=== PATIENT | male | born 1985 ===

== ENCOUNTER 2018-02-07 21:55 | Emergency (ER) | payer SELFPAY ==
[2018-02-07 23:37] LABS: ABS Basophils 0 10^3/ul (0-0.2); ABS Eosinophils 0.1 10^3/ul (0-0.6); ABS Monocytes 0.8 10^3/ul (0-0.8); ABS Neutrophils 4.4 10^3/ul (1.5-7.7); ABS Nucleated RBC 0 10^3/ul; Eosinophil % 1.1 %; Hematocrit 42 % (42-52); Hemoglobin 14.4 g/dl (14.0-18.0); Lymphocyte % 36.7 %; Mean Corpuscular HGB Conc 34 g/dl (31-36); Mean Corpuscular Hemoglobin 30 pg (27-31); Mean Corpuscular Volume 89 fL (80-94); Nucleated Red Blood Cells % 0.1; Platelet Count 255 10^3/ul (150-450); Red Blood Count 4.75 10^6/ul (4.00-5.40); Red Cell Distribution Width 14 % (10.5-15); White Blood Count 8.3 10^3/ul (3.5-10.8)
[2018-02-07] MEDS ORDERED: NS 0.9% 1000 ML* 1,000 ML IV ONE (23:53)
[2018-02-07] MEDS ORDERED: Ketorolac INJ* 30 MG/ML 1 ML VIAL IV PUSH ONE (23:53)
[2018-02-07 23:55] LABS: Urine Appearance Clear; Urine Blood Negative (Negative); Urine Color Yellow; Urine Ketones Negative (Negative); Urine Protein Negative (Negative); Urine Specific Gravity 1.012 (1.010-1.030); Urine Urobilinogen Negative (Negative)
--- NOTE | 2018-02-07 23:56 | ED ---
GI/ HPI - HPI Summary HPI Summary: 32 year male presents with abdominal pain for the past couple hours. He denies any nausea or vomiting. no fever. He has had a normal appetite. States the pain is greatest epigastric and radiates to right lower quadrant. Never had this pain before. No previous surgeries. Denies any urinary symptoms. No diarrhea or constipation. no medical conditions. had food with pepper today. - History of Current Complaint Chief Complaint: EDAbdPain Time Seen by Provider: 02/07/18 23:23 Stated Complaint: ABD PAIN Pain Intensity: 10 - Allergy/Home Medications Allergies/Adverse Reactions: Allergies Allergy/AdvReac Type Severity Reaction Status Date / Time No Known Allergies Allergy Verified 02/07/18 22:01 Home Medications: Home Medications NK [No Home Medications Reported] 02/08/18 [History Confirmed 02/08/18] PMH/Surg Hx/FS Hx/Imm Hx Endocrine/Hematology History: Denies: Hx Anticoagulant Therapy Respiratory History: Denies: Hx Asthma Infectious Disease History: No Infectious Disease History: Denies: Traveled Outside the [place] in Last 30 Days - Family History Known Family History: Positive: Non-Contributory - Social History Substance Use Type: Reports: None Review of Systems Negative: Fever Negative: Chest Pain Negative: Shortness Of Breath Positive: Abdominal Pain. Negative: Vomiting, Diarrhea, Nausea All Other Systems Reviewed And Are Negative: Yes Physical Exam Triage Information Reviewed: Yes Vital Signs On Initial Exam: Initial Vitals Temp Pulse Resp BP Pulse Ox 99.4 F 80 16 154/90 97 02/07/18 21:57 02/07/18 21:57 02/07/18 21:57 02/07/18 21:57 02/07/18 21:57 Vital Signs Reviewed: Yes Appearance: Positive: Well-Appearing Skin: Positive: Warm, Dry Head/Face: Positive: Normal Head/Face Inspection Eyes: Positive: Normal, EOMI, HEMAL, Conjunctiva Clear ENT: Positive: Normal ENT inspection, Pharynx normal, TMs normal Respiratory/Lung Sounds: Positive: Clear to Auscultation, Breath Sounds Present Cardiovascular: Positive: Normal, RRR Abdomen Description: Positive: Soft, Other: - tenderness epigastric and RLQ Bowel Sounds: Positive: Present Musculoskeletal: Positive: Normal Neurological: Positive: Normal Psychiatric: Positive: Normal Diagnostics - Vital Signs Vital Signs Temp Pulse Resp BP Pulse Ox 02/07/18 21:57 99.4 F 80 16 154/90 97 - Laboratory Lab Results: Lab Results 02/07/18 Range/Units 23:30 WBC 8.3 (3.5-10.8) 10^3/ul RBC 4.75 (4.00-5.40) 10^6/ul Hgb 14.4 (14.0-18.0) g/dl Hct 42 (42-52) % MCV 89 (80-94) fL MCH 30 (27-31) pg MCHC 34 (31-36) g/dl RDW 14 (10.5-15) % Plt Count 255 (150-450) 10^3/ul MPV 8.0 (7.4-10.4) fL Neut % (Auto) 52.7 % Lymph % (Auto) 36.7 % Mcdonald % (Auto) 9.1 % Eos % (Auto) 1.1 % Baso % (Auto) 0.4 % Absolute Neuts (auto) 4.4 (1.5-7.7) 10^3/ul Absolute Lymphs (auto) 3.0 (1.0-4.8) 10^3/ul Absolute Monos (auto) 0.8 (0-0.8) 10^3/ul Absolute Eos (auto) 0.1 (0-0.6) 10^3/ul Absolute Basos (auto) 0 (0-0.2) 10^3/ul Absolute Nucleated RBC 0 10^3/ul Nucleated RBC % 0.1 Result Diagrams: 02/07/18 23:30 02/07/18 23:30 Lab Statement: Any lab studies that have been ordered have been reviewed, and results considered in the medical decision making process. GIGU Course/Dx - Course Course Of Treatment: 32 year male presents with abdominal pain for the past couple hours. He denies any nausea or vomiting. no fever. He has had a normal appetite. States the pain is greatest epigastric and radiates to right lower quadrant. Never had this pain before. No previous surgeries. Denies any urinary symptoms. No diarrhea or constipation. On exam tenderness epigastrically right lower quadrant. Patient is very vague about the symptoms. labs within normal limits. Due to pain distribution will get a CT. patient signed out to dr woodson pending CT for dispo. - Diagnoses Differential Diagnoses - Male: Appendicitis, Gastroenteritis (Viral), Urinary Tract Infection Provider Diagnoses: Abdominal pain Discharge - Sign-Out/Discharge Documenting (check all that apply): Sign-Out Patient Signing out patient TO: Julieta Woodson - Discharge Plan Referrals: No Primary Care Phys,NOPCP [Primary Care Provider] -
[2018-02-08] MEDS ORDERED: Iohexol 300* (CONTRAST) 10 ML SDV IV ONE (02:59)
--- NOTE | 2018-02-08 03:03 | ED ---
Progress - Progress Note Progress Note: Patient was signed out from KAYLI Pablo to Dr. Woodson upon provider shift change pending CT results. - Results/Orders Results/Orders: CT Abd/Pelvis reveals, per radiologist, fatty infiltration of the liver. Dr. Woodson has reviewed this report. Course/Dx - Course Course Of Treatment: Patient was signed out from Erendira MILAN to Dr. Woodson upon provider shift change pending CT results. CT Abd/Pelvis reveals, per radiologist, fatty infiltration of the liver. Dr. Woodson has reviewed this report. Patient will be discharged home with follow up from PCP. Patient is agreeable with this plan. - Diagnoses Provider Diagnoses: Abdominal pain Discharge - Sign-Out/Discharge Documenting (check all that apply): Patient Departure - Discharge Plan Condition: Stable Disposition: HOME Patient Education Materials: Abdominal Pain (ED) [facility]errals: [facility] [address] [Outside] - 2 Days Additional Instructions: Follow up with primary care physician in 1-2 days. Return to the emergency department with any new or worsening symptoms. - Attestation Statements Document Initiated by Scribe: Yes Documenting Scribe: Erendira Ambrose Provider For Whom Scribe is Documenting (Include Credential): Julieta Woodson MD Scribe Attestation: IErendira, scribed for Julieta Woodson MD on 02/08/18 at 0412. Status of Scribe Document: Ready
[2018-02-08] MEDS ORDERED: Ketorolac INJ* 30 MG/ML 1 ML VIAL IV PUSH ONE (04:19)
[2018-02-08] MEDS ORDERED: Ketorolac INJ* 15 MG/ML 1 ML VIAL ONE (04:21)
[2018-02-08] MEDS ORDERED: Ketorolac INJ* 15 MG/ML 1 ML VIAL IV PUSH ONE (04:22)
[2018-02-08 04:33] VITALS: BP 128/95
== END 2018-02-08 04:34 | disposition home or self-care (01) ==
LOC: ED 21:55
DX: R10.13 Epigastric pain (principal); R10.31 Right lower quadrant pain
CPT/HCPCS: 36415; 74177; 80053; 81003; 83690; 85025; 86140; 96361; 96374; 96376; 99282; J1885; Q9967

== ENCOUNTER 2018-02-14 15:51 | Emergency (ER) | payer SELFPAY ==
[2018-02-14] MEDS ORDERED: Pantoprazole TAB (NF) 40 MG TAB PO ONE (16:07)
--- NOTE | 2018-02-14 16:11 | ED ---
Abdominal Pain/Male - HPI Summary HPI Summary: This pt is a 32 y/o male presenting to [facility] c/o abd pain for the past 2 days with associated symptoms of nausea and vomiting. Pt reports he has had abd pain worsening after eating. He notes he has abd bloating after eating. Denies chest pain, SOB, fever, chills, diarrhea, urinary symptoms. Pt was seen for the same 7 days ago in the ED and had a normal CT scan. He was discharged home without any medications. No PMHx. Denies any prior abd surgeries. Denies tobacco and alcohol use. - History of Current Complaint Chief Complaint: EDAbdPain Stated Complaint: VOMITING, ABD PAIN Time Seen by Provider: 02/14/18 16:00 Hx Obtained From: Patient Onset/Duration: Lasting Days - 2, Still Present Timing: Lasting Days - 2 Severity Currently: Moderate Pain Intensity: 10 Pain Scale Used: 0-10 Numeric Location: Diffuse Radiates: No Aggravating Factor(s): Food Alleviating Factor(s): Nothing Associated Signs And Symptoms: Positive: Vomiting. Negative: Fever, Chest Pain , Urinary Symptoms, Diarrhea - Allergies/Home Medications Allergies/Adverse Reactions: Allergies Allergy/AdvReac Type Severity Reaction Status Date / Time No Known Allergies Allergy Verified 02/14/18 16:56 PMH/Surg Hx/FS Hx/Imm Hx Endocrine/Hematology History: Denies: Hx Anticoagulant Therapy, Hx Diabetes Cardiovascular History: Denies: Hx Hypertension Respiratory History: Denies: Hx Asthma History: Denies: Hx Renal Disease Infectious Disease History: No Infectious Disease History: Denies: Traveled Outside the [place] in Last 30 Days - Family History Known Family History: Positive: Non-Contributory - Social History Alcohol Use: Occasionally Substance Use Type: Reports: None Smoking Status (MU): Never Smoked Tobacco Review of Systems Negative: Fever, Chills Negative: Chest Pain Negative: Shortness Of Breath Gastrointestinal: Other - POSITIVE: abd bloating Positive: Abdominal Pain, Vomiting, Nausea. Negative: Diarrhea Positive: no symptoms reported, see HPI Neurological: Negative All Other Systems Reviewed And Are Negative: Yes Physical Exam - Summary Physical Exam Summary: Appearance: Well appearing, no pain distress Skin: warm, dry, reflects adequate perfusion Head/face: normal Eyes: EOMI, HEMAL ENT: normal Neck: supple, nontender Respiratory: CTA, breath sounds present Cardiovascular: RRR, pulses symmetrical Abdomen: nontender, soft Musculoskeletal: normal, strength/ROM intact Neuro: normal, sensory motor intact, A&Ox3 Triage Information Reviewed: Yes Vital Signs On Initial Exam: Initial Vitals Temp Pulse Resp BP Pulse Ox 97.2 F 78 18 137/88 98 02/14/18 15:54 02/14/18 15:54 02/14/18 15:54 02/14/18 15:54 02/14/18 15:54 Vital Signs Reviewed: Yes Diagnostics - Vital Signs Vital Signs Temp Pulse Resp BP Pulse Ox 02/14/18 15:54 97.2 F 78 18 137/88 98 - Laboratory Result Diagrams: 02/14/18 16:14 02/14/18 16:14 Lab Statement: Any lab studies that have been ordered have been reviewed, and results considered in the medical decision making process. - Additional Comments Diagnostic Additional Comments: Abdomen/Pelvis CT (from 02/08/18), as read by radiologist IMPRESSION: 1. Fatty infiltration of the liver. 2. Otherwise negative CT abdomen/pelvis. No renal or ureteral calculi are evident and there is no evidence of obstructive uropathy. Dr. Reza has reviewed this report. Re-Evaluation - Re-Evaluation First Eval Re-Evaluation Time: 17:25 Comment: I reviewed the lab results with the pt. He will be discharged home. Abdominal Pain Fem Course/Dx - Course Assessment/Plan: Pt is a 32 y/o male who presents with abd pain for the past 2 days with associated symptoms of nausea and vomiting. He notes he has abd bloating after eating. Pt was seen for the same 7 days ago in the ED and had a normal CT scan. Blood work and urinalysis obtained. Abdomen/Pelvis CT from shows 1. Fatty infiltration of the liver. 2. Otherwise negative CT abdomen /pelvis. No renal or ureteral calculi are evident and there is no evidence of obstructive uropathy. In the ED course the pt was given Protonix. Pt is feeling better. He will be discharged home with follow up from his PCP. Pt was given a prescription for Protonix. Pt is instructed to return to the ED for any worsening or new symptoms. - Diagnoses Differential Diagnosis/HQI/PQRI: Peptic Ulcer Disease, Other - gastritis Provider Diagnoses: Abdominal pain Discharge - Sign-Out/Discharge Documenting (check all that apply): Patient Departure - Discharge home - Discharge Plan Condition: Stable Disposition: HOME Prescriptions: Pantoprazole TAB (NF) [Protonix TAB (NF)] 40 mg PO DAILY #30 tab Patient Education Materials: Abdominal Pain (ED) Print Language: JAMA[place] Referrals: [facility] [Outside] Additional Instructions: Please follow up with your primary care provider in 3 days. If you don't have one please follow up with [facility]. RETURN TO THE ED FOR ANY WORSENING OR NEW SYMPTOMS. - Billing Disposition and Condition Condition: STABLE Disposition: Home - Attestation Statements Document Initiated by Mendy: Yes Documenting Scribe: Brenna Herring Provider For Whom Mendy is Documenting (Include Credential): Sheldon Reza MD Scribe Attestation: Brenna Cabello scribed for Sheldon Reza MD on 02/14/18 at 1806. Scribe Documentation Reviewed: Yes Provider Attestation: The documentation as recorded by the Brenna long accurately reflects the service I personally performed and the decisions made by , Sheldon Reza MD Status of Scribe Document: Viewed
[2018-02-14 16:22] LABS: ABS Basophils 0 10^3/ul (0-0.2); ABS Eosinophils 0 10^3/ul (0-0.6); ABS Monocytes 0.6 10^3/ul (0-0.8); ABS Neutrophils 7.6 10^3/ul (1.5-7.7); ABS Nucleated RBC 0 10^3/ul; Eosinophil % 0.3 %; Hematocrit 42 % (42-52); Hemoglobin 14.5 g/dl (14.0-18.0); Lymphocyte % 19.6 %; Mean Corpuscular HGB Conc 35 g/dl (31-36); Mean Corpuscular Hemoglobin 31 pg (27-31); Mean Corpuscular Volume 88 fL (80-94); Nucleated Red Blood Cells % 0; Platelet Count 254 10^3/ul (150-450); Red Blood Count 4.73 10^6/ul (4.00-5.40); Red Cell Distribution Width 14 % (10.5-15); White Blood Count 10.3 10^3/ul (3.5-10.8)
[2018-02-14 16:39] LABS: Albumin 4.4 g/dL (3.2-5.2); Albumin/Globulin Ratio 1.3 (1-3); BUN/Creatinine Ratio 17.6 (8-20); Calcium 9.6 mg/dL (8.6-10.3); EGFR Non-African American 133.5 (>60); Globulin 3.5 g/dL (2-4); Potassium 3.6 mmol/L (3.5-5.0); Total Bilirubin 0.6 mg/dL (0.2-1.0); Total Protein 7.9 g/dL (6.4-8.9)
[2018-02-14 18:40] VITALS: BP 141/92
== END 2018-02-14 17:41 | disposition home or self-care (01) ==
LOC: ED 15:51
DX: R10.9 Unspecified abdominal pain (principal); R11.2 Nausea with vomiting, unspecified
CPT/HCPCS: 36415; 80053; 83690; 84484; 85025; 99283; A9270-GY

== ENCOUNTER 2018-03-06 21:44 | Emergency (ER) | payer SELFPAY ==
--- NOTE | 2018-03-06 22:14 | ED ---
Abdominal Pain/Male - HPI Summary HPI Summary: This patient is a 32 year old M presenting to [facility] co ABD pain that began yesterday. The patient rates the pain 5/10 in severity.Patient reports bloating with PO intake. Patient denies diarrhea. - History of Current Complaint Chief Complaint: EDAbdPain Stated Complaint: ABD PAIN Time Seen by Provider: 03/06/18 22:10 Hx Obtained From: Patient Onset/Duration: Lasting Days, Still Present Timing: Constant Severity Initially: Moderate Severity Currently: Moderate Pain Intensity: 5 Pain Scale Used: 0-10 Numeric Location: Diffuse Aggravating Factor(s): Food Associated Signs And Symptoms: Negative: Diarrhea - Allergies/Home Medications Allergies/Adverse Reactions: Allergies Allergy/AdvReac Type Severity Reaction Status Date / Time No Known Allergies Allergy Verified 03/06/18 21:54 PMH/Surg Hx/FS Hx/Imm Hx Endocrine/Hematology History: Denies: Hx Anticoagulant Therapy, Hx Diabetes Cardiovascular History: Denies: Hx Hypertension Respiratory History: Denies: Hx Asthma History: Denies: Hx Renal Disease Musculoskeletal History: Denies: Hx Scoliosis Psychiatric History: Denies: Hx Suicide Attempt Infectious Disease History: No Infectious Disease History: Denies: Traveled Outside the [place] in Last 30 Days - Family History Known Family History: Positive: Non-Contributory Negative: Respiratory Disease, Seizure Disorder - Social History Alcohol Use: Occasionally Substance Use Type: Reports: None Smoking Status (MU): Never Smoked Tobacco Review of Systems Negative: Fever Positive: Abdominal Pain, Other - bloating . Negative: Diarrhea All Other Systems Reviewed And Are Negative: Yes Physical Exam - Summary Physical Exam Summary: VITAL SIGNS: Reviewed. GENERAL: Patient is a well-developed and nourished MALE who is lying comfortable in the stretcher. Patient is not in any acute respiratory distress. HEAD AND FACE: No signs of trauma. No ecchymosis, hematomas or skull depressions. No sinus tenderness. EYES: PERRLA, EOMI x 2, No injected conjunctiva, no nystagmus. EARS: Hearing grossly intact. Ear canals and tympanic membranes are within normal limits. MOUTH: Oropharynx within normal limits. NECK: Supple, trachea is midline, no adenopathy, no JVD, no carotid bruit, no c- spine tenderness, neck with full ROM. CHEST: Symmetric, no tenderness at palpation LUNGS: Clear to auscultation bilaterally. No wheezing or crackles. CVS: Regular rate and rhythm, S1 and S2 present, no murmurs or gallops appreciated. ABDOMEN: Soft, non-tender. No signs of distention. No rebound no guarding, and no masses palpated. Bowel sounds are normal. EXTREMITIES: FROM in all major joints, no edema, no cyanosis or clubbing. NEURO: Alert and oriented x 3. No acute neurological deficits. Speech is normal and follows commands. SKIN: Dry and warm Triage Information Reviewed: Yes Vital Signs On Initial Exam: Initial Vitals Temp Pulse Resp BP Pulse Ox 99.2 F 67 16 137/87 96 03/06/18 21:51 03/06/18 21:51 03/06/18 21:51 03/06/18 21:51 03/06/18 21:51 Vital Signs Reviewed: Yes Diagnostics - Vital Signs Vital Signs Temp Pulse Resp BP Pulse Ox 03/06/18 21:51 99.2 F 67 16 137/87 96 - Laboratory Result Diagrams: 03/06/18 22:29 03/06/18 22:29 Lab Statement: Any lab studies that have been ordered have been reviewed, and results considered in the medical decision making process. - Radiology ABD xray Radiology Interpretation Completed By: ED Physician Summary of Radiographic Findings: stool retention consistent with constipation. Pending official report Abdominal Pain Fem Course/Dx - Course Assessment/Plan: This patient is a 32 year old M presenting to [facility] [place] ABD pain that began yesterday. Patient reports bloating with PO intake. Patient denies diarrhea. ABD XR reveals, stool retention consistent with constipation. Pending official report. In the ED course the patient was given GI cocktail and magnesium citrate. Patient will be discharged and follow up from PCP. The patient is agreeable with this plan. - Diagnoses Provider Diagnoses: Constipation Discharge - Sign-Out/Discharge Documenting (check all that apply): Patient Departure - Discharge Plan Condition: Stable Disposition: HOME Patient Education Materials: Constipation (DC), High Fiber Diet (ED) Print Language: CZECH Referrals: [facility] [Outside] - 2 Days Additional Instructions: RETURN TO THE EMERGENCY DEPARTMENT FOR CHANGING OR WORSENING SYMPTOMS. REGRESAR AL DEPARTAMENTO DE EMERGENCIA PARA CAMBIAR O ENFRENTAR [place] - Attestation Statements Document Initiated by Scribe: Yes Documenting Scribe: Oskar Daniel Provider For Whom Scribe is Documenting (Include Credential): Julieta Woodson MD Scribe Attestation: Oskar Cabello, scribed for Julieta Woodson MD on 03/06/18 at 2475. Status of Scribe Document: Ready
[2018-03-06] MEDS ORDERED: Al Hydrox/Mg Hydrox/Simet LIQ* 30 ML UDC PO ONE (22:21)
[2018-03-06] MEDS ORDERED: DICYCLOMINE HCL* 20 MG/2 ML VIAL IM ONE (22:21)
[2018-03-06] MEDS ORDERED: Lidocaine 2% VISCOUS* 15 ML UDC PO ONE (22:22)
[2018-03-06 22:38] LABS: ABS Basophils 0 10^3/ul (0-0.2); ABS Eosinophils 0.1 10^3/ul (0-0.6); ABS Lymphocytes 2.6 10^3/ul (1.0-4.8); ABS Monocytes 0.7 10^3/ul (0-0.8); ABS Neutrophils 4.1 10^3/ul (1.5-7.7); ABS Nucleated RBC 0 10^3/ul; Eosinophil % 0.8 %; Hematocrit 40 % (42-52); Hemoglobin 13.5 g/dl (14.0-18.0); Lymphocyte % 34.5 %; Mean Corpuscular HGB Conc 34 g/dl (31-36); Mean Corpuscular Hemoglobin 30 pg (27-31); Mean Corpuscular Volume 88 fL (80-94); Mean Platelet Volume 8.4 fL (7.4-10.4); Nucleated Red Blood Cells % 0; Platelet Count 223 10^3/ul (150-450); Red Blood Count 4.49 10^6/ul (4.00-5.40); Red Cell Distribution Width 14 % (10.5-15); White Blood Count 7.5 10^3/ul (3.5-10.8)
[2018-03-06 22:54] LABS: Albumin/Globulin Ratio 1.1 (1-3); BUN/Creatinine Ratio 13.9 (8-20); C Reactive Protein 1.68 mg/L (<8.01); Calcium 8.9 mg/dL (8.6-10.3); Globulin 3.6 g/dL (2-4); Potassium 3.5 mmol/L (3.5-5.0); Total Bilirubin 0.6 mg/dL (0.2-1.0); Total Protein 7.6 g/dL (6.4-8.9)
[2018-03-06] MEDS ORDERED: Magnesium CITRATE* 300 ML BTL PO ONE (23:24)
[2018-03-06] MEDS ORDERED: Bisacodyl SUPP* 10 MG SUPP PR ONE (23:25)
[2018-03-07 00:10] VITALS: BP 128/88
== END 2018-03-07 00:05 | disposition home or self-care (01) ==
LOC: ED 21:44
DX: K59.00 Constipation, unspecified (principal)
CPT/HCPCS: 36415; 74019; 80053; 82150; 83690; 85025; 86140; 99283; A9270-GY; J0500